=== PATIENT | male | born 1950 ===

== ENCOUNTER 2016-12-20 07:21 | Day surgery (SDC) | payer SELFPAY ==
[~2016-12-20 07:21] MED LIST: Midazolam 2 MG/2 ML VIAL ONE; Propofol 10 mg/ml Inj (20 ML) ONE; ePHEDrine 50 mg/ml Inj ONE
[2016-12-20 08:48] VITALS: BMI 23.9
--- NOTE | 2016-12-20 09:08 | CP.SDSHP ---
Same Day Surgery H & P - History Proposed Procedure: colonoscopy Pre-Op Diagnosis: h/o colon cancer (03/04). H/O multiple serrated adenomas - Previous Medical/Surgical History Cardiac: Hypertension Misc: Anemia Previous Surgical History: colon resection 04/05. Cholecystectomy - Allergies Allergies: Allergies ciprofloxacin [From Cipro] Allergy (Verified 03/02/16 07:27) RASH ciprofloxacin HCl [From Cipro] Allergy (Verified 03/02/16 07:27) RASH - Physical Exam Vital Signs: Vital Signs 12/20/16 08:43 Temperature 97.0 F L Pulse Rate 74 Respiratory 19 Rate Blood Pressure 132/76 O2 Sat by Pulse 97 Oximetry Mental Status: Alert & Oriented x3 Neuro: WNL Heart: WNL Lungs: WNL GI: WNL - Impression Impression: h/o colon cancer. h/o multiple serrated adenomas Pt. Evaluated Today:Candidate for Anesthesia & Procedure: Yes - Date & Time Date: 12/20/16 Time: 09:08 Short Stay Discharge - Short Stay Discharge Admitting Diagnosis/Reason for Visit: H/O COLON POLYPS Disposition: HOME/ ROUTINE
[2016-12-20] MEDS ORDERED: Propofol 10 mg/ml Inj (20 ML) ONE (09:10)
[2016-12-20] MEDS ORDERED: Lactated Ringer's 1,000 ML IV ONE (09:10)
[2016-12-20] MEDS ORDERED: Midazolam 2 MG/2 ML VIAL ONE (09:25)
[2016-12-20] MEDS ORDERED: Lactated Ringer's 500 ML IV ONE (09:41)
--- NOTE | 2016-12-20 09:46 | CP.PCM.PN ---
Subjective - Date & Time of Evaluation Date of Evaluation: 12/20/16 Time of Evaluation: 09:40 - Subjective Subjective: Colonoscopy showed small polyp proximal to healthy TV colon anastamosis. Polyp was fully removed with snare. No other polyps or masses were seen. I was able to review surgical pathology and operative report that was NOT available when records were called for from my office. Patient was registered under two different spellings of his name and had two separate charts!!! 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 He should have been evaluated and given CTX by [facility] guidelines but has not seen Dr Childers at this point in time. 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 I still feel he would have benefited from a total colectomy given his h /o multiple cancerous and precancerous serrated adenomas and the presence of an invasive malignancy in the several years that he has been followed. He is at high risk for development of another malignancy. I advise that he continue to have annual colonoscopic evaluations to clear the colon of any further adenomas. He is followed by the [facility] under Dr Lund. His case was discussed with her in detail prior to surgical referral in Feb 2016 and a correspondence letter concerning the same was provided as well. Objective - Vital Signs/Intake and Output Vital Signs (last 24 hours): Temp Pulse Resp BP Pulse Ox 97.0 F L 74 19 132/76 97 12/20/16 08:43 12/20/16 08:43 12/20/16 08:43 12/20/16 08:43 12/20/16 08:43
[2016-12-20 09:52] VITALS: O2SAT 100
[2016-12-20 10:25] VITALS: PULSE 59
[2016-12-20 10:28] VITALS: BP 133/78; RESP 13; TEMP 98
== END 2016-12-20 11:13 | disposition home or self-care (01) ==
LOC: C.ENDO 07:21 → EDBD 07:21 → C.ENDO 11:13
PROVIDERS: ATTEND Internal Medicine Gastroenterology
DX: Z12.11 Encounter for screening for malignant neoplasm of colon (principal); D12.2 Benign neoplasm of ascending colon
CPT/HCPCS: 45384; 88305; J2250; J2704; J3010; J7120

== ENCOUNTER 2017-11-28 18:39 | Emergency (ER) | payer SELFPAY ==
[2017-11-28 18:39] VITALS: BMI 26.9
[2017-11-28 18:49] VITALS: PULSE 78; RESP 18; TEMP 98.1; O2SAT 98
--- NOTE | 2017-11-28 20:07 | C.PDOC ---
History Of Present Illness Patient c/o right calf pain x 2 days. Patient sts he was crossing the street when he suddenly felt "pop" in the right calf area and he has pain since then. Patient denies SOB/Chest pain. Time Seen by Provider: 11/28/17 19:22 Chief Complaint (Nursing): Lower Extremity Problem/Injury History Per: Patient History/Exam Limitations: no limitations Onset/Duration Of Symptoms: Days (2) Current Symptoms Are (Timing): Still Present Severity: Moderate Pain Scale Rating Of: 5 Additional History Per: Patient Past Medical History Reviewed: Historical Data, Nursing Documentation, Vital Signs Vital Signs: Last Vital Signs Temp 98.1 F 11/28/17 18:47 Pulse 78 11/28/17 18:47 Resp 18 11/28/17 18:47 BP Pulse Ox 98 11/28/17 20:40 - Medical History PMH: Anxiety, Benign Prostatic Hyperplasia, Colonic Polyps, Gastritis, HTN, Hypercholesterolemia, Malignancy (colon) Denies: Chronic Kidney Disease Surgical History: Appendectomy, Cholecystectomy (03/31/16), Endoscopy - [facility] Procedures ENDO RECTUM POLYPECTOMY (05/15/13) ENDOSC POLYPECTOMY OF LG INTEST (03/25/14) ESOPHAGOGASTRODUODENOSCOPY [EGD] W/CLOSED BIOPSY (05/15/13) INSPECTION OF GALLBLADDER, PERCUTANEOUS ENDOSCOPIC APPROACH (03/31/16) PERCUTAN NEEDLE BIOPSY OF PROSTATE (09/09/14) RESECTION OF GALLBLADDER, OPEN APPROACH (03/31/16) RESECTION OF TRANSVERSE COLON, OPEN APPROACH (03/31/16) Family History: States: Unknown Family Hx - Social History Hx Tobacco Use: No Hx Alcohol Use: No Hx Substance Use: No - Immunization History Hx Tetanus Toxoid Vaccination: No Hx Influenza Vaccination: Yes Hx Pneumococcal Vaccination: Yes Review Of Systems Except As Marked, All Systems Reviewed And Found Negative. Physical Exam - Physical Exam Appears: Well, Non-toxic Skin: Normal Color, No Rash, No Cyanotic, No Ecchymosis Head: Atraumatic, Normacephalic Eye(s): bilateral: Normal Inspection Chest: Symmetrical, No Tenderness Cardiovascular: Rhythm Regular Respiratory: Normal Breath Sounds Gastrointestinal/Abdominal: Soft, No Tenderness Back: No Vertebral Tenderness, No Paraspinal Tenderness Extremity: Normal ROM, Calf Tenderness (right), Capillary Refill (<2 sec), No Deformity, Swelling (right calf) Pulses: Right Dorsalis Pedis: Normal Neurological/Psych: Oriented x3, Normal Speech, Normal Cognition ED Course And Treatment O2 Sat by Pulse Oximetry: 98 Progress Note: D dimer negative. Clark wrap was applied by RN. Patient is stable to be d/c home with PMD follow up. Disposition - Disposition Referrals: Lyn Lund MD [Staff Provider] - Disposition: HOME/ ROUTINE Disposition Time: 20:36 Condition: STABLE Additional Instructions: Follow up with your PMD within 2-3 days. Return to ED immediately if feel worse. Prescriptions: Ibuprofen [Motrin Tab] 400 mg PO Q8 #30 tab Instructions: Muscle Strain (DC) Forms: [employer] (Lithuanian) Print Language: BURUNDIAN - Clinical Impression Clinical Impression: Muscle strain, lower leg
== END 2017-11-28 20:45 | disposition home or self-care (01) ==
LOC: C.ER 18:39
DX: S86.911A Strain of unspecified muscle(s) and tendon(s) at lower leg level, right leg, initial encounter (principal); X58.XXXA Exposure to other specified factors, initial encounter

== ENCOUNTER 2017-12-27 06:38 | Day surgery (SDC) | payer OTHER ==
[2017-12-27] MEDS ORDERED: Propofol 10 mg/ml Inj (20 ML) ONE ×3 (08:38→09:18)
[2017-12-27] MEDS ORDERED: Phenylephrine 10 mg/ml Inj ONE (08:46)
--- NOTE | 2017-12-27 08:47 | CP.SDSHP ---
Same Day Surgery H & P - History Proposed Procedure: egd. colonoscopy Pre-Op Diagnosis: Juarez syndrome. heartburn. h/o colon cancerx2 - Previous Medical/Surgical History Cardiac: Hypertension, Other (hyperlipidemia, Gerd) Misc: Other (Colon cancer x2, Multiple serrated adenoma, ) Previous Surgical History: TV colon resection - Allergies Allergies: Allergies ciprofloxacin Allergy (Verified 06/15/16 16:17) PRURITIS ciprofloxacin HCl [From Cipro] Allergy (Verified 03/02/16 07:27) RASH - Physical Exam Vital Signs: Vital Signs 12/27/17 07:05 Temperature 97.5 F L Pulse Rate 79 Respiratory 19 Rate Blood Pressure 128/81 O2 Sat by Pulse 97 Oximetry Mental Status: Alert & Oriented x3 Neuro: WNL Heart: WNL Lungs: WNL GI: WNL - Impression Impression: Juarez Syndrome. h/o colon cancer. heartburn. h/o colon polyps (sessile serrated adenomas) Pt. Evaluated Today:Candidate for Anesthesia & Procedure: Yes - Date & Time Date: 12/27/17 Time: 08:47 Short Stay Discharge - Short Stay Discharge Admitting Diagnosis/Reason for Visit: HEARTBURN / P/H COLONIC POLYPS Disposition: HOME/ ROUTINE
[2017-12-27 09:57] VITALS: O2SAT 100
[2017-12-27 12:57] VITALS: BP 135/82; PULSE 72; RESP 14; TEMP 97
== END 2017-12-27 11:30 | disposition home or self-care (01) ==
LOC: C.ENDO 06:38
PROVIDERS: ATTEND Internal Medicine Gastroenterology
DX: Z12.11 Encounter for screening for malignant neoplasm of colon (principal); D12.3 Benign neoplasm of transverse colon; D12.4 Benign neoplasm of descending colon; K64.1 Second degree hemorrhoids; K29.50 Unspecified chronic gastritis without bleeding; K21.0 Gastro-esophageal reflux disease with esophagitis; K44.9 Diaphragmatic hernia without obstruction or gangrene; R12 Heartburn; R10.13 Epigastric pain; I10 Essential (primary) hypertension; E78.5 Hyperlipidemia, unspecified; Z85.038 Personal history of other malignant neoplasm of large intestine; Z86.010 Personal history of colon polyps
CPT/HCPCS: 43239; 45385; 88305; 88312; 88313; 88342; J2370; J2704

== ENCOUNTER 2018-04-09 12:01 | Outpatient (CLI) | payer OTHER | END 2018-04-09 12:02 | disposition home or self-care (01) | LOC: C.USH 12:01 | DX: R97.20 Elevated prostate specific antigen [PSA] (principal) ==